=== PATIENT | female | born 1990 | race Two or more races ===

== ENCOUNTER 2020-02-10 19:44 | Emergency (ER) | payer OTHER ==
[~2020-02-10] VITALS: Ht 162.6 cm; Wt 45.4 kg
[2020-02-10] MEDS ORDERED: SODIUM CHLORIDE 0.9% 1,000 ML IVB ONE (20:14)
[2020-02-10 22:33] LABS: Basophils # (auto) 0.1 10 ^3/uL (0-0.2); Basophils % (auto) 0.5 % (0.0-2.0); Eosinophils # (auto) 0.1 10 ^3/uL (0-0.8); Eosinophils % (auto) 0.4 % (0.0-7.0); Hemoglobin 13.8 g/dL (12.2-16.2); Lymphocytes % (auto) 6.2 % (10.0-50.0); Mean Corpuscular Hemoglobin 28.1 pg (28.0-32.0); Mean Corpuscular Volume 85.2 fL (80.0-100.0); Monocytes # (auto) 0.8 10 ^3/uL (0-1.3); Monocytes % (auto) 4.8 % (0.0-12.0); Neutrophils # (auto) 14.6 10 ^3/uL (1.6-8.6); Neutrophils % (auto) 88.1 % (37.0-80.0); Platelet Count (auto) 239 10^3/uL (140-450); Red Blood Cells 4.93 10^6/uL (4.0-5.20); Red Cell Distribution Width 14.3 % (11.8-14.3); White Blood Cell 16.6 10^3/uL (4.4-10.8)
[2020-02-10 22:51] LABS: Albumin 4.5 g/dL (3.4-5.0); Calcium 8.9 mg/dL (8.5-10.1); Potassium 4.1 mmol/L (3.5-5.1)
[2020-02-10 22:55] LABS: BUN/Creatinine Ratio 12.7; Bilirubin, Total 0.6 mg/dL (0.2-1.0); Total Protein 8.2 g/dL (6.4-8.2)
[2020-02-11 04:25] VITALS: BP 122/84
[2020-02-11 05:07] LABS: Urine Bacteria FEW /hpf (None Seen); Urine Blood 2+ /uL (Negative); Urine Mucus FEW (None Seen); Urine Specific Gravity 1.025 (1.001-1.035); Urine WBC 54 /hpf (0 - 5); Urine WBC Clumps PRESENT /hpf (None Seen)
== END 2020-02-11 05:23 | disposition home or self-care (01) ==
LOC: ER 19:44 → EDBD 19:44 → ER 02-11 05:23
DX: R10.31 Right lower quadrant pain (principal); R11.2 Nausea with vomiting, unspecified
CPT/HCPCS: 36415; 74176; 80053; 81001; 83690; 85025; 96360; 96361; 99284; J7030

== ENCOUNTER 2022-04-20 14:54 | Emergency (ER) | payer OTHER ==
[~2022-04-20] VITALS: Ht 162.6 cm; Wt 50.5 kg
[2022-04-20 15:45] LABS: Basophils # (auto) 0 10 ^3/uL (0-0.2); Eosinophils # (auto) 0 10 ^3/uL (0-0.8); Lymphocytes # (auto) 0.4 10 ^3/uL (0.4-5.4); Nucleated Red Blood Cells % 0.1 %
[2022-04-20 15:47] LABS: Basophils % (auto) 0.4 % (0.0-2.0); Eosinophils % (auto) 0.2 % (0.0-7.0); Hematocrit 43.1 % (36.0-46.0); Lymphocytes % (auto) 12.3 % (10.0-50.0); Mean Corpuscular Hgb Conc. 32.6 g/dL (32.0-36.0); Mean Corpuscular Volume 82.8 fL (80.0-100.0); Monocytes # (auto) 0.4 10 ^3/uL (0-1.3); Monocytes % (auto) 12.9 % (0.0-12.0); Neutrophils # (auto) 2.4 10 ^3/uL (1.6-8.6); Neutrophils % (auto) 74.2 % (37.0-80.0); Red Blood Cells 5.21 10^6/uL (4.0-5.20); Red Cell Distribution Width 16.4 % (11.8-14.3); White Blood Cell 3.3 10^3/uL (4.4-10.8)
[2022-04-20 15:56] LABS: Albumin 4.5 g/dL (3.4-5.0); BUN/Creatinine Ratio 6.6; Potassium 3.4 mmol/L (3.5-5.1)
[2022-04-20 15:59] LABS: Bilirubin, Total 0.2 mg/dL (0.2-1.0); Total Protein 7.5 g/dL (6.4-8.2)
[2022-04-20 17:06] LABS: Urine Bacteria FEW /hpf (None Seen); Urine Blood Negative /uL (Negative); Urine Mucus FEW (None Seen); Urine Specific Gravity 1.025 (1.001-1.035); Urine WBC 2 /hpf (0 - 5)
[2022-04-20] MEDS ORDERED: ONDANSETRON HCL 4 MG/2 ML VIAL IV ONE ×2 (20:00→22:15)
[2022-04-20] MEDS ORDERED: SODIUM CHLORIDE 0.9% 1,000 ML IV ONE (20:00)
[2022-04-20] MEDS ORDERED: KETOROLAC TROMETH 30 MG/ML 1ML VIAL IV ONE (22:15)
[2022-04-20] MEDS ORDERED: ONDA-144 PO (22:32)
[2022-04-20 22:51] VITALS: BP 104/75
== END 2022-04-20 23:08 | disposition home or self-care (01) ==
LOC: ER 14:54
DX: R10.32 Left lower quadrant pain (principal); R11.2 Nausea with vomiting, unspecified; R53.83 Other fatigue; Z90.89 Acquired absence of other organs
CPT/HCPCS: 36415; 71045; 74176; 80053; 81001; 81025; 84484; 85025; 93005; 96361; 96374; 96375; 96376; 99285; J1885; J2405; J7030

== ENCOUNTER 2022-05-30 16:38 | Emergency (ER) | payer OTHER ==
[~2022-05-30] VITALS: Ht 162.6 cm; Wt 50.0 kg
[~2022-05-30 16:38] MED LIST: ONDA-144 PO
[2022-05-30] MEDS ORDERED: SODIUM CHLORIDE 0.9% 1,000 ML IV ONE (17:00)
[2022-05-30 18:26] LABS: Basophils # (auto) 0 10 ^3/uL (0-0.2); Basophils % (auto) 0.3 % (0.0-2.0); Eosinophils # (auto) 0 10 ^3/uL (0-0.8); Lymphocytes # (auto) 0.7 10 ^3/uL (0.4-5.4); Mean Corpuscular Hemoglobin 26.9 pg (28.0-32.0); Mean Corpuscular Hgb Conc. 33.1 g/dL (32.0-36.0); Monocytes # (auto) 0.8 10 ^3/uL (0-1.3)
[2022-05-30 18:27] LABS: Eosinophils % (auto) 0.4 % (0.0-7.0); Hematocrit 38.3 % (36.0-46.0); Hemoglobin 12.7 g/dL (12.2-16.2); Lymphocytes % (auto) 5.4 % (10.0-50.0); Mean Corpuscular Volume 81.4 fL (80.0-100.0); Monocytes % (auto) 6.7 % (0.0-12.0); Neutrophils # (auto) 10.8 10 ^3/uL (1.6-8.6); Neutrophils % (auto) 87.2 % (37.0-80.0); Red Cell Distribution Width 16.9 % (11.8-14.3); White Blood Cell 12.4 10^3/uL (4.4-10.8)
[2022-05-30 18:52] LABS: Albumin 4.5 g/dL (3.4-5.0); BUN/Creatinine Ratio 10.9; Calcium 8.9 mg/dL (8.5-10.1); Potassium 4.6 mmol/L (3.5-5.1)
[2022-05-30 18:55] LABS: Bilirubin, Total 0.4 mg/dL (0.2-1.0); Total Protein 7.4 g/dL (6.4-8.2)
[2022-05-30 19:40] VITALS: BP 125/84
== END 2022-05-30 19:45 | disposition home or self-care (01) ==
LOC: EDBD 16:38 → EDUNIT# 16:38 → ER 16:42
DX: F41.9 Anxiety disorder, unspecified (principal); F12.10 Cannabis abuse, uncomplicated; Z90.49 Acquired absence of other specified parts of digestive tract; Z79.899 Other long term (current) drug therapy
CPT/HCPCS: 36415; 80053; 84702; 85025; 93005

== ENCOUNTER 2023-03-19 21:58 | Emergency (ER) | payer OTHER ==
[~2023-03-19] VITALS: Ht 162.6 cm; Wt 56.8 kg
[2023-03-19 23:03] LABS: Basophils # (auto) 0 10 ^3/uL (0-0.2); Basophils % (auto) 0.5 % (0.0-2.0); Eosinophils # (auto) 0.1 10 ^3/uL (0-0.8); Hematocrit 36.9 % (36.0-46.0); Hemoglobin 12.4 g/dL (12.2-16.2); Lymphocytes # (auto) 1.4 10 ^3/uL (0.4-5.4); Lymphocytes % (auto) 25.8 % (10.0-50.0); Mean Corpuscular Hemoglobin 28.3 pg (28.0-32.0); Mean Corpuscular Hgb Conc. 33.5 g/dL (32.0-36.0); Mean Corpuscular Volume 84.4 fL (80.0-100.0); Monocytes # (auto) 0.4 10 ^3/uL (0-1.3); Monocytes % (auto) 8.1 % (0.0-12.0); Neutrophils # (auto) 3.5 10 ^3/uL (1.6-8.6); Neutrophils % (auto) 63.6 % (37.0-80.0); Red Blood Cells 4.38 10^6/uL (4.0-5.20); White Blood Cell 5.5 10^3/uL (4.4-10.8)
[2023-03-19 23:22] LABS: Albumin 4.2 g/dL (3.4-5.0); Calcium 8.7 mg/dL (8.5-10.1); Magnesium 2.3 mg/dL (1.6-2.6); Potassium 3.9 mmol/L (3.5-5.1)
[2023-03-19 23:27] LABS: BUN/Creatinine Ratio 11.5 (10.0-20.0); Bilirubin, Total 0.3 mg/dL (0.2-1.0); Total Protein 7.2 g/dL (6.4-8.2)
[2023-03-20 01:16] VITALS: BP 118/79; PULSE 75; RESP 18; TEMP 98.5; O2SAT 98
== END 2023-03-20 01:19 | disposition home or self-care (01) ==
LOC: EDBD 21:58 → ER 22:01
DX: R00.2 Palpitations (principal); F12.10 Cannabis abuse, uncomplicated; Z79.899 Other long term (current) drug therapy
CPT/HCPCS: 36415; 71045; 80053; 83735; 84443; 84484; 85025; 93005

== ENCOUNTER 2023-06-05 11:45 | Emergency (ER) | payer OTHER ==
[~2023-06-05] VITALS: Ht 162.6 cm; Wt 58.9 kg
[2023-06-05 13:05] LABS: Basophils # (auto) 0 10 ^3/uL (0-0.2); Basophils % (auto) 0.1 % (0.0-2.0); Eosinophils # (auto) 0 10 ^3/uL (0-0.8); Eosinophils % (auto) 0.3 % (0.0-7.0); Lymphocytes # (auto) 1.2 10 ^3/uL (0.4-5.4); Lymphocytes % (auto) 11.6 % (10.0-50.0); Mean Corpuscular Hemoglobin 28.1 pg (28.0-32.0); Mean Corpuscular Hgb Conc. 33.4 g/dL (32.0-36.0); Mean Corpuscular Volume 83.9 fL (80.0-100.0); Monocytes # (auto) 0.4 10 ^3/uL (0-1.3); Monocytes % (auto) 3.8 % (0.0-12.0); Neutrophils # (auto) 8.5 10 ^3/uL (1.6-8.6); Neutrophils % (auto) 84.2 % (37.0-80.0); Red Blood Cells 5.36 10^6/uL (4.0-5.20); Red Cell Distribution Width 13.8 % (11.8-14.3); White Blood Cell 10.1 10^3/uL (4.4-10.8)
[2023-06-05 13:26] LABS: Alanine Aminotransferase 11 U/L (7-40); Albumin 5.3 g/dL (3.2-4.8); Alkaline Phosphatase 93 U/L (46-116); Anion Gap 8 (5-15); Aspartate Aminotransferase 13 U/L (13-40); BUN/Creatinine Ratio 8.1 (10.0-20.0); Bilirubin, Total 0.9 mg/dL (0.2-1.0); Blood Urea Nitrogen 7 mg/dL (9-23); Calcium 10.1 mg/dL (8.7-10.4); Carbon Dioxide 23 mmol/L (20-30); Chloride 104 mmol/L (98-107); Glucose 111 mg/dL (74-106); Potassium 3.7 mmol/L (3.5-5.1); Sodium 135 mmol/L (136-145); Total Protein 8.5 g/dL (5.7-8.2)
[2023-06-05 15:47] LABS: Urine Bacteria FEW /hpf (None Seen); Urine Blood Negative /uL (Negative); Urine Clarity Clear (Clear); Urine Color Colorless (Yellow); Urine Protein, UAD Negative (Negative); Urine Specific Gravity 1.009 (1.001-1.035); Urine Urobilinogen Normal (Negative); Urine WBC <1 /hpf (0 - 5)
[2023-06-05 19:40] VITALS: BP 124/86; PULSE 96; RESP 16; TEMP 98.6; O2SAT 99
[2023-06-05] MEDS ORDERED: OXYCODONE W/ ACETAMINOPHEN 5/325MG TABLET PO ONE (20:00)
== END 2023-06-05 21:49 | disposition left against medical advice (07) ==
LOC: ER 11:45
DX: R10.11 Right upper quadrant pain (principal); R11.2 Nausea with vomiting, unspecified; R19.7 Diarrhea, unspecified; F12.10 Cannabis abuse, uncomplicated
CPT/HCPCS: 36415; 80053; 81001; 85025

== ENCOUNTER 2023-09-09 08:50 | Emergency (ER) | payer OTHER ==
[~2023-09-09] VITALS: Ht 162.6 cm; Wt 60.3 kg
[2023-09-09 09:22] VITALS: BP 133/96; PULSE 115; RESP 18; TEMP 98.4; O2SAT 95
[2023-09-09] MEDS ORDERED: NAPR-746 PO (10:13)
== END 2023-09-09 10:23 | disposition home or self-care (01) ==
LOC: ER 08:50
DX: S09.90XA Unspecified injury of head, initial encounter (principal); Z90.49 Acquired absence of other specified parts of digestive tract; Z79.899 Other long term (current) drug therapy; W55.12XA Struck by horse, initial encounter; Y93.89 Activity, other specified; Y92.89 Other specified places as the place of occurrence of the external cause; Y99.8 Other external cause status
CPT/HCPCS: 70450

== ENCOUNTER 2024-05-03 07:53 | Emergency (ER) | payer OTHER ==
[~2024-05-03] VITALS: Ht 162.6 cm; Wt 55.0 kg
[~2024-05-03 07:53] MED LIST changes: +NAPR-746 PO
[2024-05-03] MEDS: ONDANSETRON HCL 4 MG/2 ML VIAL IV ONE ×2 (08:36→12:54)
[2024-05-03] MEDS ORDERED: HYDROmorphone HCL 2 MG/ML VL/or syr IV ONE (09:00)
[2024-05-03 09:02] LABS: Basophils # (auto) 0 10 ^3/uL (0-0.2); Basophils % (auto) 0.8 % (0.0-2.0); Eosinophils # (auto) 0.1 10 ^3/uL (0-0.8); Eosinophils % (auto) 1.8 % (0.0-7.0); Hematocrit 43.4 % (36.0-46.0); Hemoglobin 14.7 g/dL (12.2-16.2); Lymphocytes # (auto) 1.2 10 ^3/uL (0.4-5.4); Lymphocytes % (auto) 24.1 % (10.0-50.0); Mean Corpuscular Hemoglobin 28.6 pg (28.0-32.0); Mean Corpuscular Hgb Conc. 33.9 g/dL (32.0-36.0); Mean Corpuscular Volume 84.4 fL (80.0-100.0); Monocytes # (auto) 0.3 10 ^3/uL (0-1.3); Monocytes % (auto) 6.4 % (0.0-12.0); Neutrophils # (auto) 3.2 10 ^3/uL (1.6-8.6); Neutrophils % (auto) 66.9 % (37.0-80.0); Nucleated Red Blood Cells % 0.1 %; Platelet Count (auto) 272 10^3/uL (140-450); Red Blood Cells 5.14 10^6/uL (4.0-5.20); Red Cell Distribution Width 14.2 % (11.8-14.3); White Blood Cell 4.8 10^3/uL (4.4-10.8)
[2024-05-03] MEDS: MORPHINE SULFATE 4 MG/ML SYR/VIAL IV ONE ×2 (09:11→12:55)
[2024-05-03 09:19] LABS: Alanine Aminotransferase 10 U/L (7-40); Albumin 5.2 g/dL (3.2-4.8); Alkaline Phosphatase 71 U/L (46-116); Anion Gap 5 (5-15); Aspartate Aminotransferase 12 U/L (13-40); BUN/Creatinine Ratio 10.8 (10.0-20.0); Bilirubin, Total 0.6 mg/dL (0.2-1.0); Blood Urea Nitrogen 9 mg/dL (9-23); Calcium 9.8 mg/dL (8.7-10.4); Carbon Dioxide 25 mmol/L (20-30); Chloride 105 mmol/L (98-107); Glucose 84 mg/dL (74-106); Lipase 69 U/L (12-53); Potassium 3.6 mmol/L (3.5-5.1); Sodium 135 mmol/L (136-145); Total Protein 8.4 g/dL (5.7-8.2)
[2024-05-03 09:51] LABS: Urine Bacteria None Seen /hpf (None Seen)
[2024-05-03 10:15] LABS: Urine Blood 3+ /uL (Negative); Urine Clarity Clear (Clear); Urine Color Light-Yellow (Yellow); Urine Protein, UAD Negative (Negative); Urine Specific Gravity 1.013 (1.001-1.035); Urine Urobilinogen Normal (Negative); Urine WBC <1 /hpf (0 - 5); Urine pH 5.5 (5.0-9.0)
[2024-05-03] MEDS ORDERED: TAMS1CAP25 PO (12:48)
[2024-05-03] MEDS ORDERED: HYDR1TAB97 PO (12:48)
[2024-05-03] MEDS ORDERED: ZOFR4T PO (12:50)
[2024-05-03 12:54] VITALS: BP 114/89; PULSE 85; RESP 15; TEMP 97; O2SAT 99
== END 2024-05-03 13:09 | disposition home or self-care (01) ==
LOC: ER 07:53
DX: N13.30 Unspecified hydronephrosis (principal); R10.2 Pelvic and perineal pain; K82.8 Other specified diseases of gallbladder; R16.0 Hepatomegaly, not elsewhere classified; E86.0 Dehydration; F12.10 Cannabis abuse, uncomplicated
CPT/HCPCS: 36415; 74176; 76700; 80053; 81001; 83690; 84702; 85025; 87086; 96374; 96375; 96376; 99285; J2270; J2405

== ENCOUNTER 2024-05-14 07:56 | Emergency (ER) | payer OTHER ==
[~2024-05-14] VITALS: Ht 162.6 cm; Wt 54.9 kg
[~2024-05-14 07:56] MED LIST changes: +HYDR1TAB97 PO; +TAMS1CAP25 PO; +ZOFR4T PO
[2024-05-14] MEDS: SODIUM CHLORIDE 0.9% 1,000 ML IV ONE (08:15)
[2024-05-14 08:40] LABS: Basophils # (auto) 0 10 ^3/uL (0-0.2); Basophils % (auto) 0.5 % (0.0-2.0); Eosinophils # (auto) 0.2 10 ^3/uL (0-0.8); Eosinophils % (auto) 3.1 % (0.0-7.0); Hematocrit 40.7 % (36.0-46.0); Hemoglobin 13.7 g/dL (12.2-16.2); Lymphocytes % (auto) 35.8 % (10.0-50.0); Mean Corpuscular Hemoglobin 28.2 pg (28.0-32.0); Mean Corpuscular Hgb Conc. 33.6 g/dL (32.0-36.0); Mean Corpuscular Volume 83.9 fL (80.0-100.0); Monocytes # (auto) 0.3 10 ^3/uL (0-1.3); Monocytes % (auto) 5.6 % (0.0-12.0); Neutrophils # (auto) 3.1 10 ^3/uL (1.6-8.6); Platelet Count (auto) 282 10^3/uL (140-450); Red Blood Cells 4.85 10^6/uL (4.0-5.20); White Blood Cell 5.6 10^3/uL (4.4-10.8)
[2024-05-14 08:47] LABS: Chloride 104 mmol/L (98-107); Potassium 4.3 mmol/L (3.5-5.1); Sodium 140 mmol/L (136-145)
[2024-05-14 08:48] LABS: Anion Gap 8 (5-15); Calcium 9.8 mg/dL (8.7-10.4); Carbon Dioxide 28 mmol/L (20-30)
[2024-05-14 08:53] LABS: BUN/Creatinine Ratio 10.7 (10.0-20.0); Blood Urea Nitrogen 9 mg/dL (9-23); Glucose 85 mg/dL (74-106)
[2024-05-14] MEDS: ONDANSETRON HCL 4 MG/2 ML VIAL IV ONE ×2 (09:31→14:50)
[2024-05-14] MEDS: KETOROLAC TROMETH 30 MG/ML 1ML VIAL IV ONE (09:51)
[2024-05-14 10:30] LABS: Urine Bacteria FEW /hpf (None Seen); Urine Blood Negative /uL (Negative); Urine Clarity Turbid (Clear); Urine Color Light-Yellow (Yellow); Urine Protein, UAD Negative (Negative); Urine Specific Gravity 1.022 (1.001-1.035); Urine Urobilinogen Normal (Negative); Urine WBC 2 /hpf (0 - 5)
[2024-05-14] MEDS: IOHEXOL 350 MG/ML 100ML IJ ONE (14:30)
[2024-05-14] MEDS: MORPHINE SULFATE 4 MG/ML SYR/VIAL IV ONE ×2 (14:40→15:45)
[2024-05-14 14:48] VITALS: TEMP 97.8; O2SAT 98
[2024-05-14] MEDS: ONDANSETRON HCL 4 MG/2 ML VIAL ONE (14:56)
[2024-05-14 15:24] VITALS: BP 125/84; PULSE 84; RESP 16
[2024-05-14] MEDS ORDERED: OXYC-900 PO (16:44)
== END 2024-05-14 16:58 | disposition home or self-care (01) ==
LOC: ER 07:56
DX: R10.11 Right upper quadrant pain (principal); R11.2 Nausea with vomiting, unspecified; R53.1 Weakness; F12.90 Cannabis use, unspecified, uncomplicated; Z90.49 Acquired absence of other specified parts of digestive tract; Z90.89 Acquired absence of other organs; Z98.890 Other specified postprocedural states; Z79.899 Other long term (current) drug therapy
CPT/HCPCS: 36415; 71260; 74177; 76775; 80048; 81001; 85025; 96361; 96374; 96375; 96376; 99285; J1885; J2270; J2405; J7030; Q9967

== ENCOUNTER 2024-09-17 12:00 | Emergency (ER) | payer MEDICAID, OTHER ==
[~2024-09-17] VITALS: Ht 162.6 cm; Wt 55.7 kg
[~2024-09-17 12:00] MED LIST changes: +OXYC-900 PO
[2024-09-17 13:04] VITALS: BP 129/87; PULSE 92; RESP 17; TEMP 98.1; O2SAT 100
[2024-09-17] MEDS: FAMOTIDINE 20 MG TAB PO ONE (13:06)
[2024-09-17] MEDS: DexAMETHasone SOD PHOS 10MG/1ML VIAL INJ PO ONE (13:06)
[2024-09-17] MEDS: diphenhdrAMINE HCL 25 MG CAP PO ONE (13:06)
--- NOTE | 2024-09-17 14:38 | ED.PDOC ---
HPI Allergic reaction HPI Comments 34y F who presents to the ED for chief complaint of allergic reaction. Pt states earlier this AM, pt took her sumatriptan and states after taking her medications she started to have esophageal spasm, some hives and felt slightly short of breath and came to the ED for further evaluation. Pt in the ED, in no noted respiratory distress and denies having a allergic reaction to the medication in the past. Pt has noted vitals of 98% on room air with all other vitals in normal range. Pt otherwise denies any chest pain, shortness of breath, or any associated symptoms. Pt otherwise denies any other symptoms at this time. Chief Complaint: Allergic Reaction Time Seen by MD: 13:00 Primary Care Provider: NONE Reviewed Notes: Nurses Notes Allergies: Coded Allergies: NO KNOWN ALLERGIES (Unverified , 05/30/22) Home Meds Active Scripts Oxycodone HCl (Oxycodone Hydrochloride) 5 Mg Tab, 5 MG PO QIDACHS PRN for 4 Days, #16 TAB Prov:JULIANNE SPAIN MD 05/14/24 Ondansetron Odt 4MG Tab (ZOFRAN PO) 4 Mg Tb, 4 MG PO Q8HPRN PRN, #14 TAB ODT TAB-DISSOLVE IN MOUTH, THEN SWALLOW Prov:CANDACE VALENZUELA MD 05/03/24 Hydrocodone-Acetaminophen (Hydrocodone/Acetaminophen 5-325 mg) 1 Tab Tab, 1 TAB PO Q8HPRN PRN, #10 TAB Prov:CANDACE VALENZUELA MD 05/03/24 Tamsulosin HCl (Tamsulosin Hydrochloride) 0.4 Mg Cap, 0.4 MG PO QHSP PRN, #14 CAP Prov:CANDACE VALENZUELA MD 05/03/24 Naproxen (Naproxen) 500 Mg Tab, 500 MG PO BID, #30 TAB Prov:WALLACE MCPHERSON 09/09/23 Ondansetron (Zofran) 4 Mg Tab, 4 MG PO Q4HPRN PRN, #15 MG Prov:DERIK CANNON MD 04/20/22 Information Source: Patient Mode of Arrival: Ambulatory Brought in by: self Past Medical History PAST MEDICAL HISTORY: Denies Surgical History: Appendectomy, Tonsillectomy [employer]ENT History: No Pertinent [employer]ENT History, Endometriosis Family History Family History: Reviewed,noncontributory to illness, No family hx of Cancer, No family hx of DM, No family hx of Heart yulia Social History Smoker: Non-Smoker Alcohol: Occasionally Drugs: Marijuana Lives In: Home Constitutional: denies: chills, diaphoresis, fatigue, fever, malaise, sweats, weakness, others EENTM: denies: blurred vision, double vision, ear bleeding, ear discharge, ear drainage, ear pain, ear ringing, eye pain, eye redness, hearing loss, mouth pain, mouth swelling, nasal discharge, nose bleeding, nose congestion, nose pain, photophobia, tearing, throat pain, throat swelling, voice changes, others Respiratory: reports: shortness of breath; denies: cough, hemoptysis, orthopnea, SOB at rest, SOB with excertion, stridor, wheezing, others Cardiovascular: denies: chest pain, dizzy spells, diaphoresis, Dyspnea on exertion, edema, irregular heart beat, left arm pain, lightheadedness, palpitations, PND, syncope, others Gastrointestinal: denies: abdomen distended, abdominal pain, blood streaked bowels, constipated, diarrhea, dysphagia, difficulty swallowing, hematemesis, melena, nausea, poor appetite, poor fluid intake, rectal bleeding, rectal pain, vomiting, others Genitourinary: denies: abnormal vagina bleeding, burning, dyspareunia, dysuria, flank pain, frequency, hematuria, incontinence, pain, , vagina discharge, urgency, others Neurological: denies: dizziness, fainting, headache, left sided numbness, left sided weakness, numbness, paresthesia, pre-existing deficit, right sided numbness, right sided weakness, seizure, speech problems, tingling, tremors, weakness, others Musculoskeletal: denies: back pain, gout, joint pain, joint swelling, muscle pain, muscle stiffness, neck pain, others Integumetry: denies: bruises, change in color, change in hair/nails, dryness, laceration, lesions, lumps, rash, wounds, others Allergic/Immunocompromised: reports: Hives; denies: Difficulty Healing, Frequent Infections, Itching, others Hematologic/Lymphatic: denies: anemia, blood clots, easy bleeding, easy bruising, swollen glands, others Endocrine: denies: excessive hunger, excessive sweating, excessive thirst, excessive urination, flushing, intolerance to cold, intolerance to heat, unexplained weight gain, unexplained weight loss, others Psychiatric: denies: anxiety, bipolar disorder, depression, hopeless, panic disorder, schizophrenia, sleepless, suicidal, others All Other Systems: Reviewed and Negative Physical Exam General Appearance: Mild Distress, Normal HEENT: Normal ENT Inspection, Pharynx Normal, TMs Normal Neck: Full Range of Motion, Non-Tender, Normal, Normal Inspection Respiratory: Chest Non-Tender, Lungs Clear, No Accessory Muscle Use, No Respiratory Distress, Normal Breath Sounds Cardiovascular: No Edema, No JVD, No Murmur, No Gallop, Normal Peripheral Pulses, Regular Rate/Rhythm Breast Exam: Deferred Gastrointestinal: No Organomegaly, Non Tender, No Pulsatile Mass, Normal Bowel Sounds, Soft Genitalia: Deferred Pelvic: Deferred Rectal: Deferred Extremities: No calf tenderness, Normal capillary refill, Normal inspection, Normal range of motion, Non-tender, No pedal edema Musculoskeletal : Apperance: Normal Neurologic: Alert, aircraft engine technician II-XII nml as Tested, No Motor Deficits, Normal Affect, Normal Mood, No Sensory Deficits Cerebellar Function: Normal Reflexes: Normal Skin: Dry, Normal Color, Warm Lymphatic: No Adenopathy Was a procedure done? Was a procedure done?: No Differential diagnosis (all) Differential Diagnosis: Anaphylaxis, Angioedema, Bronchospasm, Contact Dermatitis, Drug Reaction X-Ray, Labs, Meds, VS Vital Signs Date Time Temp Pulse Resp B/P (MAP) Pulse Ox O2 Delivery O2 Flow Rate FiO2 09/17/24 13:04 98.1 92 17 129/87 (101) 100 98.1 09/17/24 12:42 98.8 103 16 142/95 (111) 99 09/17/24 12:42 16 99 Room Air* 0 21 Current Medications Medications (Trade) Dose Ordered Sig/Sampson Route Start Time Stop Time Status Last Admin Dexamethasone Sodium Phosphate (Decadron Injection) 10 mg ONCE ONCE PO 09/17/24 13:00 09/17/24 13:01 DC 09/17/24 13:06 Diphenhydramine HCl (Benadryl Capsule) 25 mg ONCE ONCE PO 09/17/24 13:00 09/17/24 13:01 DC 09/17/24 13:06 Famotidine (Pepcid Tablet) 20 mg ONCE ONCE PO 09/17/24 13:00 09/17/24 13:01 DC 09/17/24 13:06 Time of 1ST Reevaluation: 13:30 Reevaluation 1ST: Improved Time of 2ND Reevaluation: 14:00 Reevaluation 2ND: Improved Patient Education/Counseling: Diagnosis, Treatment Family Education/Counseling: No Family Present Departure 1 Departure Time of Disposition: 14:00 Impression: Primary Impression: Esophageal spasm Additional Impression: Adverse drug reaction Disposition: 01 HOME / SELF CARE / HOMELESS Condition: Stable Additional Instructions: Call GI group for follow up : Return to the ED for any worsening symptoms or concerns Discharged With: Self Critical Care Note Critical Care Time?: No Stability Stability form required: No Heart Score Heart Score: Heart Score Response (Comments) Value History N/A 0 EKG N/A 0 Age N/A 0 Risk Factors N/A 0 Troponin N/A 0 Total 0 I personally scribed for SOL NEUMANN MD ([email or web address]) on 09/17/24 at 14:38. Electronically submitted by Emi Conroy ([email or web address]). SOL NEUMANN MD Sep 17, 2024 14:38
== END 2024-09-17 13:31 | disposition home or self-care (01) ==
LOC: ER 12:00
DX: K22.4 Dyskinesia of esophagus (principal); T39.8X5A Adverse effect of other nonopioid analgesics and antipyretics, not elsewhere classified, initial encounter; Z90.49 Acquired absence of other specified parts of digestive tract; Z90.89 Acquired absence of other organs; Z79.899 Other long term (current) drug therapy; Y92.89 Other specified places as the place of occurrence of the external cause
CPT/HCPCS: 99284; J1100